=== PATIENT | male | born 1940 ===

== ENCOUNTER 2018-09-28 04:34 | Emergency (ER) | payer MEDICARE ==
[2018-09-28 05:17] LABS: Basophils % (Auto) 0.1 % (0.0-1.8); Eosinophils # (Auto) 0.1 K/mm3 (0.0-0.4); Eosinophils % (Auto) 0.5 % (0.0-4.3); Hematocrit 35.2 % (35.5-45.6); Lymphocytes # (Auto) 0.9 K/mm3 (1.2-5.4); Lymphocytes % (Auto) 7.4 % (13.4-35.0); Mean Corpuscular HGB Conc 31 % (32-34); Monocytes # (Auto) 0.7 K/mm3 (0.0-0.8); Monocytes % (Auto) 6.1 % (0.0-7.3); Platelet Count 180 K/mm3 (140-440); Red Blood Count 5.71 M/mm3 (3.65-5.03); Red Cell Distribution Width 17.3 % (13.2-15.2)
[2018-09-28 05:18] LABS: Mean Corpuscular Volume 62 fl (84-94)
[2018-09-28 05:28] LABS: Bilirubin,Urine NEG (Negative); Blood,Urine NEG (Negative); Color,Urine Yellow (Yellow); Mucus,Urine FEW /HPF; Protein,Urine <15 mg/dL mg/dL (Negative); Urobilinogen,Urine < 2.0 mg/dL (<2.0); WBC,Urine < 1.0 /HPF (0.0-6.0)
[2018-09-28] MEDS ORDERED: MORPHINE IV ONE ×2 (05:30→06:15)
[2018-09-28] MEDS ORDERED: ZOFRAN IV ONE (05:30)
[2018-09-28 05:39] LABS: Alanine Aminotransferase 16 units/L (7-56); Albumin 4.4 g/dL (3.9-5); BUN/Creatinine Ratio 24; Blood Urea Nitrogen 19 mg/dL (9-20); Calcium 9.4 mg/dL (8.4-10.2); Hemolysis Index 34
--- NOTE | 2018-09-28 05:48 | Emergency Department Report ---
<JACKSONARTEMCHAS KadieRadha - Last Filed: 09/28/18 05:45> ED Abdominal Pain HPI - General Chief Complaint: Abdominal Pain Stated Complaint: ABD PAIN Source: patient, family Mode of arrival: Ambulatory Limitations: Language Barrier - History of Present Illness Initial Comments: Patient is 78-year-old male with history of Parkinson. Patient presented to the ER accompanied by his stating that he started having a left lower quadrant pain yesterday. Patient denied any vomiting but he stated that is slightly nauseated. No diarrhea, no fever or chills. Patient also denied any chest pain or shortness of breath. No similar episodes. MD Complaint: abdominal pain -: Last night Location: LLQ Radiation: none Migration to: no migration Severity scale (0 -10): 10 Quality: sharp - Related Data Previous Rx's Medication Instructions Recorded Last Taken Type HYDROcodone/APAP 7.5-325 [[place] 1 each PO Q6HR PRN #15 tablet 09/28/18 Unknown Rx 7.5/325] Ketorolac [Toradol] 10 mg PO Q6H PRN #12 tablet 09/28/18 Unknown Rx Ondansetron [Zofran Odt] 4 mg PO Q4HR PRN #20 tab.rapdis 09/28/18 Unknown Rx Sulfamethoxazole/Trimethoprim 1 each PO BID #14 tablet 09/28/18 Unknown Rx [Bactrim DS TAB] Tamsulosin [Flomax] 0.4 mg PO QDAY #5 cap 09/28/18 Unknown Rx Allergies Allergy/AdvReac Type Severity Reaction Status Date / Time No Known Allergies Allergy Unverified 09/28/18 04:39 ED Review of Systems Comment: All other systems reviewed and negative Constitutional: denies: chills, fever Respiratory: denies: cough, orthopnea, shortness of breath, SOB with exertion, SOB at rest Cardiovascular: denies: chest pain, palpitations Gastrointestinal: abdominal pain, nausea. denies: vomiting, diarrhea, constipation, hematemesis, melena, hematochezia Musculoskeletal: denies: back pain Neurological: denies: headache, weakness, numbness, paresthesias, confusion ED Past Medical Hx - Past Medical History Previous Medical History?: Yes Additional medical history: Parkinsons - Surgical History Past Surgical History?: No - Social History Smoking Status: Never Smoker - Medications Home Medications: Home Medications Medication Instructions Recorded Confirmed Last Taken Type HYDROcodone/APAP 7.5-325 [[place] 1 each PO Q6HR PRN #15 tablet 09/28/18 Unknown Rx 7.5/325] Ketorolac [Toradol] 10 mg PO Q6H PRN #12 tablet 09/28/18 Unknown Rx Ondansetron [Zofran Odt] 4 mg PO Q4HR PRN #20 tab.rapdis 09/28/18 Unknown Rx Sulfamethoxazole/Trimethoprim 1 each PO BID #14 tablet 09/28/18 Unknown Rx [Bactrim DS TAB] Tamsulosin [Flomax] 0.4 mg PO QDAY #5 cap 09/28/18 Unknown Rx ED Physical Exam - General Limitations: Language Barrier General appearance: alert, in no apparent distress - Head Head exam: Present: atraumatic, normocephalic, normal inspection - Eye Eye exam: Present: normal appearance - ENT ENT exam: Present: normal exam, normal orophraynx, mucous membranes moist - Neck Neck exam: Present: normal inspection, full ROM. Absent: meningismus, lymphadenopathy, thyromegaly - Respiratory Respiratory exam: Present: normal lung sounds bilaterally - Cardiovascular Cardiovascular Exam: Present: regular rate, normal rhythm, normal heart sounds - GI/Abdominal GI/Abdominal exam: Present: soft, tenderness (left lower quadrant tenderness), normal bowel sounds. Absent: distended, guarding, rebound, rigid, organomegaly, mass, bruit, pulsatile mass, hernia - Extremities Exam Extremities exam: Present: normal inspection, full ROM, normal capillary refill - Back Exam Back exam: Present: normal inspection. Absent: CVA tenderness (R), CVA tenderness (L), muscle spasm, paraspinal tenderness, vertebral tenderness - Neurological Exam Neurological exam: Present: alert, oriented X3, CN II-XII intact, normal gait, reflexes normal - Skin Skin exam: Present: warm, intact, normal color ED Medical Decision Making - Lab Data Result diagrams: 09/28/18 05:01 09/28/18 05:01 ED Disposition Clinical Impression: Nephrolithiasis Disposition: - TO HOME OR SELFCARE Condition: Stable Instructions: Kidney Stones (ED) Additional Instructions: Please return if pain becomes uncontrollable or if you begin to run a fever Prescriptions: Sulfamethoxazole/Trimethoprim [Bactrim DS TAB] 1 each PO BID #14 tablet Tamsulosin [Flomax] 0.4 mg PO QDAY #5 cap HYDROcodone/APAP 7.5-325 [[place] 7.5/325] 1 each PO Q6HR PRN #15 tablet PRN Reason: Pain Ketorolac [Toradol] 10 mg PO Q6H PRN #12 tablet PRN Reason: Pain Ondansetron [Zofran Odt] 4 mg PO Q4HR PRN #20 tab.rapdis PRN Reason: Nausea Referrals: LETITIA STEWART MD [Primary Care Provider] - 3-5 Days TABATHA WHITTAKER MD [Staff Physician] - 3-5 Days <BALA HIDALGO - Last Filed: 09/28/18 07:46> ED Review of Systems ROS: Stated complaint: ABD PAIN Other details as noted in HPI ED Course Vital Signs 09/28/18 09/28/18 09/28/18 04:44 05:10 05:20 Temperature 98.1 F 98.2 F Pulse Rate 76 75 Respiratory 20 20 20 Rate Blood Pressure 198/82 Blood Pressure 182/81 [Left] O2 Sat by Pulse 96 97 97 Oximetry 09/28/18 09/28/18 09/28/18 05:35 06:05 06:20 Temperature Pulse Rate Respiratory 20 16 16 Rate Blood Pressure Blood Pressure [Left] O2 Sat by Pulse Oximetry 09/28/18 09/28/18 09/28/18 06:40 06:50 06:54 Temperature Pulse Rate 85 Respiratory 20 20 20 Rate Blood Pressure Blood Pressure 187/78 [Left] O2 Sat by Pulse 95 Oximetry 09/28/18 07:21 Temperature Pulse Rate 81 Respiratory 15 Rate Blood Pressure Blood Pressure 165/72 [Left] O2 Sat by Pulse 97 Oximetry ED Medical Decision Making - Lab Data Result diagrams: 09/28/18 05:01 09/28/18 05:01 - Medical Decision Making Addendum done by Bala Hidalgo M.D. For able to get good pain control with 2 doses of morphine and Toradol White count is likely secondary to acute stress reaction Since the patient is afebrile and not tachycardic and urinalysis not showing an infection. The patient to follow up with urology as an outpatient. Was discussed in detail the size of stone and the importance of follow urology Patient and his spouse understood and agreed with this plan of care Critical care attestation.: If time is entered above; I have spent that time in minutes in the direct care of this critically ill patient, excluding procedure time. ED Disposition Is pt being admited?: No Does the pt Need Aspirin: No Time of Disposition: 07:39
[2018-09-28] MEDS ORDERED: MORPHINE IM ONE (06:10)
--- NOTE | 2018-09-28 06:26 | Cat Scan Report ---
CT abdomen pelvis w con INDICATION / CLINICAL INFORMATION: abdominal pain/LLQ. TECHNIQUE: 100 cc of Omnipaque [address] scans at this location are performed us ing CT dose reduction for MICHELLE by means of automated exposure control. COMPARISON: None available. FINDINGS: No free fluid is seen in the abdomen. Small stones are present in the gallbladder. There is a [address] one in the proximal left ureter with obstruction. Small bilateral renal cysts are present. There is a 1.4 cm low-density lesion in the body the pancreas (image 50). The liver, spleen and adrenals are no rmal. Atherosclerotic changes present without evidence for an aneurysm. In the pelvis, no free fluid is seen. No enlarged lymph nodes are identified. The bladder wall is mil dly thickened and the prostate is enlarged. The appendix is normal. Degenerative changes present in t he spine. IMPRESSION: 1. 1.4 cm low-density lesion in the body of the pancreas 2. 7 mm stone in the proximal left ureter with obstruction 3. Mild bladder wall thickening with prostate enlargement Signer Name: Darion Hunter MD FACR Signed: 09/28/2018 6:22 AM Workstation Name: [id number]
[2018-09-28] MEDS ORDERED: TORADOL ONE (06:52)
[2018-09-28] MEDS ORDERED: TORADOL IV ONE (06:53)
[2018-09-28 07:23] VITALS: BP 165/72
[2018-09-28] MEDS ORDERED: ROCEPHIN/NS 1 GM/50 ML 1 GM/50 ML BAG IV ONE (07:40)
[2018-09-28] MEDS ORDERED: XYLOCAINE 1% MPF 5 mL INFILTRATI ONE (07:47)
[2018-09-28] MEDS ORDERED: ROCEPHIN IM ONE (07:47)
== END 2018-09-28 08:10 | disposition home or self-care (01) ==
LOC: ED 04:34
DX: N20.0 Calculus of kidney (principal); G20 Parkinson's disease; Z79.899 Other long term (current) drug therapy
CPT/HCPCS: 36415; 74177; 80053; 81001; 83690; 85025; 96372; 96374; 96375; 96376; 99285; J0696; J1885; J2270; J2405; Q9967